=== PATIENT | female | born 1950 | race Caucasian/White ===

== ENCOUNTER → 2017-07-12 | Outpatient (CLI) | payer MEDICARE | END | disposition home or self-care (01) | LOC: CFH 11:17 | PROVIDERS: ATTEND Internal Medicine | DX: Z12.31 Encounter for screening mammogram for malignant neoplasm of breast (principal) | CPT/HCPCS: 77067 ==

== ENCOUNTER 2020-04-20 10:15 | Outpatient (CLI) | payer MEDICARE | END 2020-04-20 23:59 | disposition home or self-care (01) | LOC: CFH 10:15 | PROVIDERS: ATTEND Internal Medicine | DX: Z12.31 Encounter for screening mammogram for malignant neoplasm of breast (principal); Z13.820 Encounter for screening for osteoporosis; M85.88 Other specified disorders of bone density and structure, other site; M89.9 Disorder of bone, unspecified; N95.1 Menopausal and female climacteric states | CPT/HCPCS: 77063; 77067; 77080 ==

== ENCOUNTER 2021-01-05 06:39 | Outpatient (CLI) | payer MEDICARE | END 2021-01-06 23:59 | disposition home or self-care (01) | LOC: CVU 06:39 → CFH 23:59 | PROVIDERS: ATTEND Internal Medicine Clinical Cardiac Electrophysiology | DX: I25.9 Chronic ischemic heart disease, unspecified (principal); I48.0 Paroxysmal atrial fibrillation | CPT/HCPCS: 78452; 93017; 93306; A9502 ==

== ENCOUNTER 2021-01-20 10:06 | Day surgery (SDC) | payer MEDICARE ==
[~2021-01-20] VITALS: Ht 167.6 cm; Wt 124.5 kg
[2021-01-20] MEDS ORDERED: PRED5DRO20 EACHEYE (10:46)
[2021-01-20] MEDS ORDERED: AMIT10TA PO (10:46)
[2021-01-20] MEDS ORDERED: LEVO50TA5 PO (10:46)
[2021-01-20] MEDS ORDERED: LOSA25TA25 PO (10:46)
[2021-01-20] MEDS ORDERED: CHLO25TA PO (10:46)
[2021-01-20] MEDS ORDERED: ALEN70TA77 PO (10:46)
[2021-01-20] MEDS ORDERED: RIVA10TA2 PO (10:46)
[2021-01-20 10:50] VITALS: BP 145/60
[2021-01-20 11:04] LABS: BASOPHILS % (AUTO) 1 % (0-1); EOSINOPHILS % (AUTO) 1 % (1-7); LYMPHOCYTES % (AUTO) 23 % (22-44); MEAN CORPUSCULAR HEMOGLOBIN 31.5 pg (27.0-34.8); MEAN CORPUSCULAR HGB CONC 34.3 g/dL (32.4-35.8); MEAN PLATELET VOLUME 7.2 fL (7.4-10.4); MONOCYTES % (AUTO) 7 % (2-9); NEUTROPHILS % (AUTO) 68 % (42-75); PLATELET COUNT 275 x10^3/uL (130-400); RED BLOOD COUNT 4.83 x10^6/uL (3.82-5.3); RED CELL DISTRIBUTION WIDTH 13.4 % (9.6-15.2)
[2021-01-20] MEDS ORDERED: MIDAZOLAM 1 MG/ML, 5ML ONE (11:10)
[2021-01-20] MEDS ORDERED: FENTANYL PF 100 MCG/2ML ONE (11:10)
[2021-01-20 11:11] LABS: ANION GAP 6 mmol/L (5-15); CALCIUM 9.3 mg/dL (8.5-10.1); CHLORIDE 106 mmol/L (98-107); CREATININE 1.35 mg/dL (0.55-1.02)
[2021-01-20] MEDS ORDERED: HEPARIN 1,000 UNITS/ML, 10ML ONE (11:11)
[2021-01-20] MEDS ORDERED: TICAGRELOR 90 MG TABLET ONE (11:11)
[2021-01-20] MEDS ORDERED: LIDOCAINE-MPF 1%, 5ML ONE (11:11)
[2021-01-20] MEDS ORDERED: VERAPAMIL 2.5 MG/ML, 2ML ONE (11:11)
[2021-01-20] MEDS ORDERED: BIVALIRUDIN 250 MG ONE (11:11)
[2021-01-20] MEDS ORDERED: NITROGLYCERIN 5 MG/ML, 10ML ONE (11:13)
[2021-01-20] MEDS ORDERED: FLEC50TA25 PO (13:26)
== END 2021-01-20 14:34 | disposition home or self-care (01) ==
LOC: CACL 10:06
PROVIDERS: ATTEND Internal Medicine Cardiovascular Disease
DX: R94.39 Abnormal result of other cardiovascular function study (principal); I48.0 Paroxysmal atrial fibrillation; I10 Essential (primary) hypertension; G47.33 Obstructive sleep apnea (adult) (pediatric); E03.9 Hypothyroidism, unspecified; E66.9 Obesity, unspecified; Z68.41 Body mass index [BMI] 40.0-44.9, adult; Z79.01 Long term (current) use of anticoagulants; Z79.82 Long term (current) use of aspirin; Z79.890 Hormone replacement therapy; Z79.899 Other long term (current) drug therapy; Z88.8 Allergy status to other drugs, medicaments and biological substances
CPT/HCPCS: 36415; 80048; 85025; 93458; 99156; C1769; C1894; J2250; J3010; Q9967; J0583; J1644